=== PATIENT | female | born 1950 | race Caucasian/White ===

== ENCOUNTER 2019-04-25 18:08 | Emergency (ER) | payer OTHER, MEDICAID ==
[~2019-04-25] VITALS: Ht 175.3 cm; Wt 117.9 kg
--- NOTE | 2019-04-25 18:15 | NUR ---
Placed in room 6 . Placed on threat monitoring analyst, blood pressure machine and pulse oximeter. To gown for exam. Side rails up.
[2019-04-25 18:16] VITALS: BP_SYST 158
--- NOTE | 2019-04-25 18:24 | NUR ---
pt arrives from [facility] for med clearance. Pt is on a 5150 hold for danger to other.
--- NOTE | 2019-04-25 18:30 | NUR ---
PT IN BED REFUSING GOWN, VSS, RESTING COMFORTABLY AT THIS TIME.
--- NOTE | 2019-04-25 18:40 | NUR ---
ER at bedside examining patient.
--- NOTE | 2019-04-25 19:00 | NUR ---
URINE COLLECTED VIA STRAIGHT CATH AND SENT TO LAB
[2019-04-25 19:10] LABS: BILIRUBIN,URINE NEGATIVE (NEGATIVE); BLOOD, URINE NEGATIVE (NEGATIVE); CLARITY/URINE CLEAR (CLEAR); COLOR,URINE YELLOW (YELLOW); GLUCOSE,URINE NEGATIVE (NEGATIVE); KETONES,URINE NEGATIVE (NEGATIVE); LEUKOCYTE ESTERASE ,URINE NEGATIVE (NEGATIVE); NITRITE, URINE NEGATIVE (NEGATIVE); PROTEIN URINE NEGATIVE (NEGATIVE); UROBILINOGEN,URINE 0.2 (0.2-1.0)
--- NOTE | 2019-04-25 19:10 | NUR ---
Report given to Isidoro KNIGHT. MRSA, labs, and urine have been collected for medical clearance
--- NOTE | 2019-04-25 19:15 | NUR ---
BLOOD DRAWN BY EMBEDDED SOFTWARE MANAGER.
[2019-04-25 19:45] LABS: BASOPHILS % (AUTO) 0.3 % (0.0-2.0); CALCIUM 9.4 mg/dL (8.4-11.0); CREATININE 1.3 mg/dL (0.55-1.30); EOSINOPHILS % (AUTO) 0.5 % (0.0-4.0); HEMATOCRIT 38.9 % (36-48); HEMOGLOBIN 12.7 g/dL (12.0-16.0); LYMPHOCYTES # (AUTO) 0.9 K/uL (1.0-5.5); LYMPHOCYTES % (AUTO) 11.3 % (20.5-51.5); MEAN CORPUSCULAR HEMOGLOBIN 30 pg (27-31); MEAN CORPUSCULAR HGB CONC 33 % (32-36); MEAN CORPUSCULAR VOLUME 92 fL (79.0-98.0); MONOCYTES # (AUTO) 0.6 K/uL (0.0-1.0); MONOCYTES % (AUTO) 7.1 % (1.7-9.3); NEUTROPHILS # (AUTO) 6.3 K/uL (1.8-7.7); NEUTROPHILS % (AUTO) 80.8 % (40.0-70.0); PLATELET COUNT (AUTO) 160 K/uL (130-430); RED BLOOD CELL COUNT(AUTO) 4.22 MIL/uL (4.2-6.2); RED CELL DISTRIBUTION WIDTH 13.9 % (9.0-15.0); WHITE BLOOD COUNT (AUTO) 7.8 K/uL (4.8-10.8)
--- NOTE | 2019-04-25 19:45 | NUR ---
RECEIVED ALERT,CONFUSED, NOT IN ACUTE DISTRESS. NO PAIN OR DISCOMFORT NOTED. ON 5150 HOLD FOR DANGER TO OTHERS. FOR MEDICAL CLEARANCE FOR ADMISSION TO [facility]. VS STABLE, WILL CONTINUE TO MONITOR.
[2019-04-25 19:50] LABS: ALBUMIN 3.9 g/dL (3.4-4.8); TOTAL BILIRUBIN 0.4 mg/dL (0.0-1.0)
--- NOTE | 2019-04-25 22:00 | NUR ---
RESTING IN BED, NOT IN ANY KIND OF DITRESS. NO PAIN OR DISCOMFORT NOTED. AWAITING LAB.RESULTS AND MEDICAL CLEARANCE. VS REMAIN STABLE.
--- NOTE | 2019-04-25 23:00 | NUR ---
PT. MEDICALLY CLEARED. PT. TO BE ADMITTED AT [facility] UNDER THE CARE OF . PT.WILL BE GOING TO ROOM 58-B. AMBULANCE ETA IS 2345. PT. REMAINS STABLE AND PAIN FREE.
--- NOTE | 2019-04-25 23:36 | NUR ---
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
--- NOTE | 2019-04-25 23:45 | NUR ---
REPORT GIVEN TO DANIEL LEARY RN.
--- NOTE | 2019-04-25 23:55 | NUR ---
REPORT GIVEN TO [facility] EMT MICHELLE.
--- NOTE | 2019-04-26 00:06 | NUR ---
LEFT VIA AMBULANCE GURNEY STABLE.
[2019-04-26 00:15] VITALS: BP_SYST 150
== END 2019-04-26 00:15 ==
LOC: SED 18:08
DX: R45.1 Restlessness and agitation (principal); F25.9 Schizoaffective disorder, unspecified; I10 Essential (primary) hypertension; J44.9 Chronic obstructive pulmonary disease, unspecified
CPT/HCPCS: 36415; 80053; 80061; 81003; 83036; 85025; 87081; 99285